=== PATIENT | female | born 1940 | race Caucasian/White ===

== ENCOUNTER 2022-08-08 15:19 | Outpatient (CLI) | payer MEDICARE, BC, SELFPAY ==
--- NOTE | 2022-08-08 15:30 | CRLHL7_ITS ---
For Patients: As a result of the Century Cures Act, medical imaging exams and procedure reports are released immediately into your electronic medical record. You may view this report before your referring provider. If you have questions, please contact your health care provider. Indication: Dizziness and imbalance Technique: Noncontrast sagittal T1, axial FLAIR, T2 turbo spine echo, high-resolution T2 weighted sequence and diffusion weighted images. Supplemental post contrast T1 weighted axial and coronal sequences are provided after administration of 15 mL gadolinium-based IV contrast. Comparison: No prior studies available for comparison at this institution. Findings: Moderate scattered foci of T2/FLAIR signal hyperintensity in the periventricular and subcortical white matter, nonspecific but likely due to chronic microangiopathic white matter changes. Mild generalized parenchymal volume loss. 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 The midline structures are centrally located with no evidence of shift. There are no suspicious intra or extra-axial fluid collections. No evidence of restricted diffusion to suggest acute ischemia. Expected flow voids in the cavernous carotids and basilar artery. No abnormal contrast enhancement involving the brain parenchyma, meninges, calvarium or skull base. Moderate mucosal thickening in the right maxillary sinus. Thinning of the ocular lenses likely due to prior cataract surgery changes.. Impression: 1. No evidence of acute intracranial abnormality. 2. Moderate cerebral and cerebellar parenchymal volume loss. Moderate supratentorial and infratentorial chronic microangiopathic white matter changes. 3. Unremarkable MRI of the internal auditory canals, cerebellopontine angles, and temporal bone structures. 4. No pathologic enhancement. Dictated by Leonides Emerson MD @ 08/09/2022 2:46:12 PM (Electronically Signed)
== END 2022-08-08 15:20 | disposition home or self-care (01) ==
PROVIDERS: PCP Physician Assistant Medical; Visit Provider Otolaryngology
DX: R42 Dizziness and giddiness (principal); R26.89 Other abnormalities of gait and mobility; Z13.29 Encounter for screening for other suspected endocrine disorder; Z11.9 Encounter for screening for infectious and parasitic diseases, unspecified; R70.0 Elevated erythrocyte sedimentation rate
CPT/HCPCS: 70553; 80048; 84443; 86039; 86431; 86618; A9575

== ENCOUNTER 2022-09-22 07:58 | Outpatient (CLI) | payer MEDICARE, BC, SELFPAY ==
--- OUTSIDE RECORDS SUMMARY | 2022-09-22 08:16 | XMS_ITS | Clinical Summary ---
:1940 Author Organization [employer] [facility] [place] [address] Care Team Providers Name Role Phone Neema Siddiqui Primary Care Provider [phone] Allergies Active Allergy Reactions Severity Noted Date Comments Esomeprazole Other - Describe In Low 06/22/2012 Indicate d it made Comment Field her feel funny - unable to give a true reaction d etail 03/10/14 Sulfa (Sulfonamide Tremors 06/22/2012 Antibiotics) Medications Medication Sig Dispensed Refills Start End Date Status Date multivitamin (MVI) Take 1 tablet 0 Active tablet by mouth once daily. CALCIUM Take 1,500 mg 0 Active CARBONATE/VITAMIN by mouth once D3 (CALCIUM + D daily. ORAL) medication order Right breast 1 Each 0 Active composerIndication prosthetic 9 s: Personal history of malignant neoplasm of breast tretinoin Apply a pea 45 g 3 Active (RETIN-A) 0.025 % sized amount to 1 0.025 % the face at creamIndications: bedtime. Use Photoaging of skin every 3rd night for 1 week, every other night for 1 week, then every night as tolerated. levothyroxine Take 1 Tablet 90 Tablet 3 Ac tive (SYNTHROID) 125 (125 mcg) by 1 mcg mouth before tabletIndications: breakfast. Hypothyroidism, unspecified type indomethacin Take 1 Capsule 30 Capsule 0 A ctive (INDOCIN) 50 mg (50 mg) by 2 capsuleIndications mouth 3 times : Gout, daily with unspecified cause, meals. unspecified chronicity, unspecified site citalopram Take 1 Tablet 90 Tablet 3 Activ e (CELEXA) 40 mg (40 mg) by 2 tabletIndications: mouth once History of major daily. depression fluticasone INHALE 1 DOSE 180 Each 3 Acti ve propion-salmeteroL BY MOUTH TWICE 2 (ADVAIR) 500-50 DAILY mcg/Dose diskus inhalerIndications : COPD with chronic bronchitis (HC) fluticasone INHALE 1 DOSE 60 Each 0 08/25/20 Disc ontinued propion-salmeteroL BY MOUTH TWICE 2 22 (Reorder (ADVAIR) 500-50 DAILY (E-c ancel not mcg/Dose diskus sent )) inhalerIndications : COPD with chronic bronchitis (HC) Active Problems Problem Noted Date COPD (chronic obstructive pulmonary disease) 4 ACP (advance care planning) 10/06/2013 Vitamin D deficiency 08/04/2013 Lung disease, interstitial 08/04/2013 Hyperlipidemia 07/22/2013 HYPOTHYROIDISM OSTEOPENIA Resolved Problems Problem Noted Date Resolved Date History of solitary pulmonary nodule -- follow-up CT 017 08/25/2022 05/30/2017 -- Nodule Resolved -- 5 mm, CT 11/2016 - [place] History of Helicobacter pylori infection 03/20/2016 08/25/2022 History of major depression 06/15/2015 08/25/2022 Degenerative arthritis of finger 04/21/2015 022 Dental abscess 04/21/2015 08/25/2022 Lumbar degenerative disc disease 07/21/2014 022 Lumbar facet arthropathy 07/21/2014 08/25/2022 Ganglion cyst of wrist 07/07/2014 08/25/2022 Fatty tumor 07/07/2014 08/25/2022 Left bundle branch block 07/07/2014 08/25/2022 Abnormal finding on EKG 05/19/2014 08/25/2022 Colon polyp 05/18/2014 05/20/2014 Autoimmune disease, 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) - 04/1308/25/2022 follows with Rheumatology in [place] H/O major depression 04/13/2014 08/25/2022 Arthritis of hand, degenerative 04/13/2014 10/28/20 22 [facility] arthritis, thumb, degenerative 04/13/201408/25 Dyspnea 08/07/2013 08/25/2022 Dyspnea 07/22/2013 04/13/2014 Rash 06/04/2013 04/13/2014 Renal cyst, left 06/24/2012 08/25/2022 Pelvic mass in female 06/05/2012 08/25/2022 MYOSITIS 05/31/2011 03/20/2016 CPK, ABNORMAL 04/12/2011 08/25/2022 Overview: She has a macro CPK complex BRONCHITIS, ACUTE 07/21/2010 04/13/2014 SKIN LESION 06/07/2010 08/25/2022 POSTMENOPAUSAL STATUS 08/25/2022 Osteoarthritis 08/25/2022 COLITIS 08/25/2022 Overview: Episodic nonspecific colitis ANXIETY 08/25/2022 Overview: Secondary to dx of breast cancer ADENOCARCINOMA, BREAST, HX OF 08/25/2022 Overview: T1 N0 M0 ER positive right breast cancer 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 Overview: T1 N0 M0 ER positive right breast cancer Obesity 08/25/2022 Encounters Date Type Specialty Care Team Description 08/25/2022 Office Visit Neema Siddiqui Medicare AN MICHAEL Carrera (subsequent) Vi sit (80 year medicare w [facility]- no pal rns ) 08/25/2022 Travel 08/22/2022 Ancillary Procedure 08/22/2022 Travel 08/20/2022 Travel 08/15/2022 Office Visit Neema Siddiqui Person MICHAEL Carey Investigation ( PUI) (Productive cou gh, SOB, fever x 10 days ) 08/15/2022 Travel from Last 3 Months Immunizations Name Administration Dates Next Due COVID-19 vaccine ([employer] 02/20/2022 30mcg/0.3mL) 12YO+ LISET-SUCROSE PF, MDV COVID-19 vaccine ([employer] 07/25/2021, 01/04/2021, 30mcg/0.3mL) PF, MDV Influenza Virus, Unspecified 08/21/2017, 08/23/2016, 016, 08/18/2015, 07/29/2014, 07/28/2014, 08/04/2013, 08/12/2012, 07/18/2011, 07/18/2011, 08/19/2007 Influenza, High-dose Inactivated 09/02/2019, 08/27/2018, , 08/23/2016 Influenza, High-dose Quadrivalent 07/17/2022, 09/16/2021, Inactivated Influenza, IIV3 (Age 6-35 mos) 08/17/2015, 07/23/2009 Influenza, IIV3 (Age >=3 years) 07/29/2014, 08/04/2013, 07/29, 07/18/2011, 08/19/2007 Influenza, IIV4 08/18/2015 Pneumococcal Poly,23-Valent 04/25/2018, 03/14/2004 (Pneumovax) Pneumococcal conj 13-Valent (Prevnar 05/02/2017 13) Td (Age >=7 Years) 06/21/2010, 03/14/2004 Tdap 06/05/2012 Tdap, Unspecified 03/14/2004 Zoster (Zostavax-ZVL, live) 06/21/2010, 07/01/2009, 07/07/20 08 Family History Medical History Relation Name Comments Cancer-prostate Brother 2 Heart Disease Brother 3 pacemaker Cancer Brother 4 cancer of the la rynx. Heart Disease Brother 5 Amyloidosis of t he heart, needs a heart transplant . Cancer Father skin cancer Genitourinary Disease Father at ag e 84 of kidney failure Heart Disease Father CAD Other Father had dementia Osteoporosis Mother Thyroid Disease Mother Hyperthyroidism Other Paternal Grandmother Dementia Thyroid Disease Sister 2 Hyperthyroidism Cancer-ovarian Sister 3 Cancer-breast No Family History Diabetes No Family History Relation Name Status Comments Brother 1 Brother 2 Brother 3 Brother 4 Brother 5 Daughter Alive Father at age 84 o f kidney failure Mother (Age 93) with natu ral causes, osteoporosis Paternal Grandmother Sister 1 Alive Sister 2 Sister 3 Social History Tobacco Use Types Packs/Day Years Used Date Former Smoker Cigarettes 0.5 Quit: 01/01/20 06 Smokeless Tobacco: Never Used Tobacco Cessation: Counseling Given: Yes Comments: smoked ages 22 until age 67 Alcohol Use Standard Drinks/Week Comments Yes 0 (1 standard drink = 0.6 oz pure alcoho l) occasional Alcohol Habits Answer Date Recorded How often do you have a drink containing alcohol? Not asked How many drinks containing alcohol do you have on a typical Not asked day when you are drinking? How often do you have six or more drinks on one occasion? No t asked Comment: occasional 04/19/2022 Sex Assigned at Date Recorded Not on file COVID-19 Exposure Response Date Recorded In the last 10 days, have you been in contact with No / Unsu re 08/25/2022 1:03 PM CDT someone who was confirmed or suspected to have Coronavirus/COVID-19? Obstetrics History Last Filed Vital Signs Vital Sign Reading Time Taken Comments Blood Pressure 104/64 08/25/2022 1:13 PM CDT Pulse 62 08/25/2022 1:13 PM CDT Temperature 36.9 ??C (98.5 ??F) 08/15/2022 10:45 AM CDT Respiratory Rate 20 01/11/2022 9:41 AM CDT Oxygen Saturation 96% 08/25/2022 1:13 PM CDT Inhaled Oxygen Concentration - - Weight 73.7 kg (162 lb 6.4 oz) 08/25/2022 1:13 PM CDT Height 165.6 cm (5' 5.2) 08/25/2022 1:13 PM CDT Body Mass Index 26.86 08/25/2022 1:13 PM CDT Plan of Treatment Health Maintenance Due Date Last Done Comments Zoster (shingles) series for age 1008/16/2010 06/21/2010, 12/2008, 50+ (2 of 3) 07/07/2008 Tetanus booster 06/05/2022 06/05/2012, 06/21/2010, 03/14/2004, Additional history exists BMI (ht and wt on same day) for 08/25/2023 08/25/2022, 11/29, age 18+ 11/16/2021, Additional history exists Depression screening for age 12+ 08/25/2023 08/25/2022, , 08/09/2020, Additional history exists Medicare Wellness for age 65+ 08/25/2023 08/25/2022, 2020, 08/09/2020, Additional history exists Tdap Completed 06/05/2012, 03/14/2004 Pneumococcal series for age 65+ Completed 04/25/2018, 02/2017, 03/14/2004 DEXA/DXA scan for age 65+ Completed 07/14/2020, 06/24/2018 , 08/06/2014, Additional history exists COVID-19 vaccine series Completed 07/17/2022, 02/20/2022, 07/25/2021, Additional history exists Influenza for age 65+ Completed 07/17/2022, 09/16/2021, 07/16/2020, Additional history exists Procedures Procedure Name Priority Date/Time Associated Diagnosis Comme nts BASIC METABOLIC Routine 08/25/2022 1:45 PM Screening for Resul ts for this PANEL CDT diabetes mellitus procedure are in the results section. LIPID PANEL W Routine 08/25/2022 1:45 PM Screening Results for this REFLEX MEASURED LDL CDT cholesterol level pro cedure are in the results section. TSH Routine 08/25/2022 1:45 PM Hypothyroidism, Result s for this CDT unspecified type procedure a re in the results section. XR MAMMO JOSSELYN BILAT Routine 08/22/2022 11:33 AM Routine adult health Results for this SCREEN CDT maintenance procedure are i n the results section. from Last 3 Months Results (ABNORMAL) LIPID PANEL W REFLEX MEASURED LDL (08/25/2022 1:45 PM CDT) [facility] Method Time Signature CHOLESTEROL,TOTAL 204 (H) 100 - 199 08/27/2022 [facility] mg/dL 3:58 AM CDT LABORATORY-[facility] TRAL LABORATORY TRIGLYCERIDES 224 (H) <150 08/27/2022 [facility] mg/dL 3:58 AM CDT LABORATORY-[facility] TRAL LABORATORY HDL CHOLESTEROL 55 >40 mg/dL 08/27/2022 [facility] 3:58 AM CDT LABORATORY-[facility] TRAL LABORATORY NON-HDL 149 (H) <145 08/27/2022 [facility] CHOLESTEROL mg/dl 3:58 AM CDT LABORATORY-[facility] TRAL LABORATORY CHOL/HDL RATIO 3.71 <4.50 08/27/2022 [facility] 3:58 AM CDT LABORATORY-[facility] TRAL LABORATORY LDL CHOLESTEROL 104 <=130 08/27/2022 [facility] mg/dL 3:58 AM CDT LABORATORY-[facility] TRAL LABORATORY VLDL CHOLESTEROL 45 (H) <=30 08/27/2022 [facility] mg/dL 3:58 AM CDT LABORATORY-[facility] TRAL LABORATORY PROVIDER ORDERED RANDOM 08/27/2022 [facility] STATUS 3:58 AM CDT LABORATORY-[facility] TRAL LABORATORY Specimen Anatomical Collection Method / Collection Time Recei magali Time (Source) Location / Volume Laterality Blood BLOOD SPECIMEN / Venipuncture / 08/25/2022 1:45 2021 1:50 Unknown Unknown PM CDT PM CDT Neema RODRIGUEZ CHEMISTRY Performing Organization Address [facility] e Number [facility] [address] [place] [address] LABORATORY-CENTRAL 2000 LABORATORY TSH (08/25/2022 1:45 PM CDT) athologist Signature TSH 0.44 0.35 - 4.94 08/27/2022 [facility] uIU/mL 4:20 AM CDT LABORATORY-CENTR AL LABORATORY Specimen Anatomical Collection Method / Collection Time Recei magali Time (Source) Location / Volume Laterality Blood BLOOD SPECIMEN / Venipuncture / 08/25/2022 1:45 2021 1:50 Unknown Unknown PM CDT PM CDT Narrative [facility] LABORATORY-CENTRAL LABORAT ORY - 08/27/2022 4:20 AM CDT In Adults, TSH values between 5.00 and 10.00 uIU/ml do not necessarily indicate the presence of Hyp othyroidism. Correlation with clinical findings such as presence of goiter and/or Thyroperoxidase (TPO) Antibody ma y be helpful. For more information please refer to ADRIAN 20 04; 291: [id number]. Neema RODRIGUEZ CHEMISTRY Performing Organization Address [facility] e Number [facility] [address] [place] [address] LABORATORY-CENTRAL 2000 LABORATORY (ABNORMAL) BASIC METABOLIC PANEL (08/25/2022 1:45 PM CDT) athologist Signature SODIUM 139 135 - 145 08/27/2022 [facility] mmol/L 3:56 AM CDT LABORATORY-[facility] TRAL LABORATORY POTASSIUM 4.7 3.5 - 5.0 08/27/2022 [facility] mmol/L 3:56 AM CDT LABORATORY-[facility] TRAL LABORATORY CHLORIDE 105 98 - 110 08/27/2022 [facility] mmol/L 3:56 AM CDT LABORATORY-[facility] TRAL LABORATORY CO2,TOTAL 26 21 - 31 08/27/2022 [facility] mmol/L 3:56 AM CDT LABORATORY-[facility] TRAL LABORATORY ANION GAP 8 5 - 18 08/27/2022 [facility] 3:56 AM CDT LABORATORY-[facility] TRAL LABORATORY GLUCOSE 91 65 - 100 08/27/2022 [facility] mg/dL 3:56 AM CDT LABORATORY-[facility] TRAL LABORATORY CALCIUM 9.3 8.5 - 10.5 08/27/2022 [facility] mg/dL 3:56 AM CDT LABORATORY-[facility] TRAL LABORATORY BUN 17 8 - 25 08/27/2022 [facility] mg/dL 3:56 AM CDT LABORATORY-[facility] TRAL LABORATORY CREATININE 0.82 0.57 - 08/27/2022 [facility] 1.11 mg/dL 3:56 AM CDT LABORATORY-[facility] TRAL LABORATORY BUN/CREAT RATIO 21 (H) 10 - 20 08/27/2022 [facility] 3:56 AM CDT LABORATORY-[facility] TRAL LABORATORY eGFR 72 (L) >90 08/27/2022 [facility] mL/min/1.7 3:56 AM CDT LABORATORY-NASIM 3m2 TRAL LABORATORY Comment: As of 2022, eGFR is calcu lated by the CKD-EPI creatinine equation without race adjustment. eGFR can be inf luenced by muscle mass, exercise, and diet. The reported eGFR is an estimation only and is only applicable if the renal function is stable. Specimen Anatomical Collection Method / Collection Time Recei magali Time (Source) Location / Volume Laterality Blood BLOOD SPECIMEN / Venipuncture / 08/25/2022 1:45 2021 1:50 Unknown Unknown PM CDT PM CDT Neema RODRIGUEZ CHEMISTRY Performing Organization Address City/State/ZIP Code Phon e Number [facility] [address] [place] [address] LABORATORY-CENTRAL 2000 LABORATORY XR MAMMO JOSSELYN BILAT SCREEN (08/22/2022 11:33 AM CDT) Anatomical Region Laterality Modality BREASTS, Breast Left, Breast Right Bilateral Mammo graphy Specimen (Source) Anatomical Location Collection Method / Collectio n Time Received Time / Laterality Volume Impressions 08/22/2022 1:55 PM CDT ??There is no radiographic evidence for malignancy. ??Recommend annual mammograms. MAMMOGRAM ASSESSMENT: ??ACR 2 Benign PATIENTS: You will also receive a letter with your examination results in an easy to read format. ??If you have qu estions about your results, please contact your referring provider. Narrative 08/22/2022 1:55 PM CDT For Patients: As a result of the Century Cures Act, medical imaging exams and procedure reports are released immediately into your electronic medical record. You may view this report before your referring provider. If you have questions, please contact [facility] provider. XR MAMMO JOSSELYN BILAT SCREEN [[id number]] CLINICAL HISTORY: ??This is an asymptoma tic 82 y.o. patient. INDICATION FOR EXAM: Mammogram Screening . TECHNIQUE: CC & MLO views were obtained. ??This study was evaluated with the assistance of Computer-Aided Detecti on. Breast Tomosynthesis was used in interpretation. COMPARISON FILMS: Yes 08/05/21 [facility] 07/14/20 [facility] FINDINGS: ??The breasts have scattered a reas of fibroglandular density. ??No suspicious masses or microcalcifications . ??Post treatment changes within right breast. Neema RODRIGUEZ MAMMO from Last 3 Months Insurance Payer Benefit Plan / Subscriber ID Effective Dates Phone Addre ss Type Group MEDICARE MEDICARE [id number] 2007-Presen [address] PROVIDER BASED PROVIDER BASED t [place] [phone] MEDICARE PART B MEDICARE PART B [id number] 2007-Presevelio ATTN: CLAIMS - HB USE ONLY HB ONLY t [address] [place] [phone] BLUE CROSS BLUE CROSS [id number] 2016-[place] [address] [address] [address] [place], [place] HB ONLY [id number] BLUE CROSS MR MR BC [place] [id number] 2016-Presen [address] [place] [address] BLUE CROSS MR CASTRO CROSS [id number] 2016-Presen [address] [address] [address] [place], [place] PB ONLY [id number] Advance Directives Documents on File Type Date 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
--- NOTE | 2022-09-22 09:15 | CRLHL7_ITS ---
For Patients: As a result of the Century Cures Act, medical imaging exams and procedure reports are released immediately into your electronic medical record. You may view this report before your referring provider. If you have questions, please contact your health care provider. INDICATION: Unsteady gait. TECHNIQUE: 3D time-of flight and gadolinium bolus magnetic resonance angiography of the neck with 3D MIP reconstructions provided. All measurements are based on NASCET criteria. 20 cc of Dotarem administered. COMPARISON : None. FINDINGS: There is a 3 vessel configuration of the aortic arch. The brachiocephalic artery is patent. The proximal subclavian arteries are patent. The common carotid arteries are patent. The internal carotid arteries are patent. Poor visualization of the left proximal cervical vertebral artery, which could be secondary to artifact or true stenosis. The left cervical vertebral artery mid to distally is patent. Right cervical vertebral artery is patent throughout its course. No abnormal dilatation of the major cervical arteries. IMPRESSION: 1. No flow-limiting stenosis involving the cervical carotid arteries. 2. Poor visualization of the left proximal cervical vertebral artery, which could be secondary to artifact or true stenosis. Left cervical vertebral artery mid to distally is patent. Right cervical vertebral artery is patent throughout its course. Dictated by Kenny Espinoza MD @ 09/22/2022 10:46:01 AM (Electronically Signed)
--- NOTE | 2022-09-22 10:15 | CRLHL7_ITS ---
For Patients: As a result of the Century Cures Act, medical imaging exams and procedure reports are released immediately into your electronic medical record. You may view this report before your referring provider. If you have questions, please contact your health care provider. INDICATION: Unsteady gait. TECHNIQUE: 3D gias-pn-zithuj magnetic resonance angiography of the head with 3D MIP reconstructions provided. Diffusion imaging was also obtained. COMPARISON: None. FINDINGS: No proximal large vessel occlusion. The anterior cerebral arteries are patent. The middle cerebral arteries are patent. The posterior cerebral arteries are patent. The intradural vertebral arteries and basilar artery are patent. The intracranial internal carotid arteries are patent. No aneurysm or high flow vascular malformation. No evidence of acute ischemia on the diffusion imaging. IMPRESSION: IMPRESSION 1. Normal appearance of the intracranial arterial circulation, with no proximal large vessel occlusion, flow limiting stenosis or other vascular abnormality. Dictated by Kenny Espinoza MD @ 09/22/2022 10:33:52 AM (Electronically Signed)
== END 2022-09-22 07:59 | disposition home or self-care (01) ==
LOC: RAD 07:59
PROVIDERS: PCP Physician Assistant Medical; Visit Provider Psychiatry & Neurology Neurology
DX: R26.9 Unspecified abnormalities of gait and mobility (principal); I63.9 Cerebral infarction, unspecified; H81.4 Vertigo of central origin
CPT/HCPCS: 70544; 70549; 93306; A9575

== ENCOUNTER 2023-05-07 07:51 | Outpatient (CLI) | payer MEDICARE, BC, SELFPAY ==
--- NOTE | 2023-05-07 08:15 | CRLHL7_ITS ---
For Patients: As a result of the Century Cures Act, medical imaging exams and procedure reports are released immediately into your electronic medical record. You may view this report before your referring provider. If you have questions, please contact your health care provider. INDICATION: Left elbow palpable abnormality. TECHNIQUE: Multiplanar, multisequence MR imaging of the elbow without intravenous contrast per standard elbow protocol. COMPARISON: None available. FINDINGS: OSSEOUS: No acute fracture, osseous contusion, or marrow replacement. JOINT: Effusion: Trace joint fluid. Loose Bodies: None identified. Ulnohumeral cartilage: No high-grade chondral loss. Radiocapitellar cartilage: No high-grade chondral loss. LIGAMENTS: Ulnar collateral ligamentous complex: Intact. Radial collateral ligamentous complex: Intact. TENDONS: Triceps: Intact. Biceps: Marked substance loss, indistinctness, and edema involving the distal insertional aspects of the biceps tendon. Surrounding the tendon is a fluid collection measuring approximately 2.1 x 1.7 x 3.6 cm at the level of the antecubital fossa (series 5, image 22; series 9, image 14), corresponding the palpable area of concern. Brachialis: Intact. Supinator: Intact. Common extensor tendon: Intact. Common flexor tendon: Intact. SOFT TISSUES: Musculature: No atrophy, edema, or fatty infiltration. Cubital tunnel: Unremarkable. Mass: No solid mass identified. Collection: Fluid collection surrounding the distal biceps tendon, as above. Other: Negative. IMPRESSION: Distal biceps tendon high-grade, near-complete insertional tear. Associated bicipitoradial bursitis corresponding with the antecubital fossa palpable abnormality. Dictated by Will Monroy MD @ 05/07/2023 10:57:09 AM (Electronically Signed)
== END 2023-05-07 07:52 | disposition home or self-care (01) ==
LOC: MRI 07:52
PROVIDERS: PCP Physician Assistant Medical; Visit Provider Family Medicine
DX: R22.32 Localized swelling, mass and lump, left upper limb (principal); M75.52 Bursitis of left shoulder
CPT/HCPCS: 73221

== ENCOUNTER 2023-09-14 09:57 | Outpatient (CLI) | payer MEDICARE, BC, SELFPAY ==
--- NOTE | 2023-09-14 10:15 | CRLHL7_ITS ---
For Patients: As a result of the Century Cures Act, medical imaging exams and procedure reports are released immediately into your electronic medical record. You may view this report before your referring provider. If you have questions, please contact your health care provider. Indication: Osteoarthritis Procedure : Informed consent was obtained. The site was marked. Time-out was performed. The skin of the right hip was cleansed with ChloraPrep. A sterile drape was placed. 8 cc of 1 percent lidocaine was administered for superficial anesthesia. Subsequently a 22 gauge spinal needle was introduced into the right hip joint under intermittent fluoroscopic guidance. Injection of 7 cc 1 percent lidocaine and 2 cc of 40 milligram/cc Depo-Medrol then performed. The needle was removed and hemostasis achieved with direct pressure. A dressing was placed. The patient tolerated the procedure well without immediate complication. Total fluoroscopy time 7 seconds. Impression: Successful fluoroscopically guided right hip injection with 80 milligrams of Depo-Medrol. Dictated by Leonides Squires MD @ 09/14/2023 12:15:01 PM (Electronically Signed)
== END 2023-09-14 09:58 | disposition home or self-care (01) ==
LOC: RAD 09:57
PROVIDERS: PCP Physician Assistant Medical; Visit Provider Orthopaedic Surgery Sports Medicine
DX: M16.11 Unilateral primary osteoarthritis, right hip (principal)
CPT/HCPCS: 20610; 77002; J1030

== ENCOUNTER 2023-10-24 09:11 | Outpatient (CLI) | payer MEDICARE, BC, SELFPAY ==
--- NOTE | 2023-10-24 09:15 | MR_ITS ---
[address] [address] Phone:?[phone] Fax:?[phone] Referring Physician Information: Elver Diego M.D. [address] [facility] [address] Phone:?[phone] Fax:?[phone] Patient:Jovi Batista D.O.B:?1940 Sex:?Female Phone:?[phone] [facility] MRN:?[id number] Exam Date:?10/24/2023 EXAM: MRI of the RIGHT HIP, without contrast CLINICAL: Reported history of right hip osteoarthritis. COMPARISONS: X-rays dated 08/27/2023. TECHNICAL: Multiplanar multisequence MRI of the right hip was obtained. Coronal large [id number] sequences of the pelvis/bilateral hips were also obtained. SEDATION: None. CONTRAST: None. FINDINGS: Hip joint: Physiologic volume of joint fluid. No convincing loose bodies. No demonstrable high-grade or full-thickness chondral loss. Labrum: There is fraying and tearing of the anterosuperior labrum as seen on axial oblique series 6 image 13-17. No perilabral cyst formation identified. Proximal femur: No marrow edema, fracture or osteonecrosis. No concerning osseous lesion identified. Acetabulum: There is mild degenerative peripheral spurring involving the acetabulum. Minimal subchondral reactive marrow edema involving the peripheral superior acetabulum. No significant subchondral cystic change and no evidence of fracture. Ligamentum teres: Intact and unremarkable. Pelvis osseous structures: No suspicious marrow signal alteration or fracture line. Mild to moderate changes of arthrosis are seen to involve the inferior sacroiliac joints bilaterally. Mild to moderate changes of arthrosis are seen to involve the pubic symphysis. No evidence of osteitis pubis. Myotendinous structures: Gluteus abductors: Moderate tendinosis and mild partial tearing of the distal right gluteus minimus tendon as seen on axial series 7 images 18-21. Distal gluteus medius tendon appears unremarkable. Adductors: No demonstrable tendinopathy or strain/tear. Hamstrings: There is mild tendinosis and mild partial tearing of the proximal right hamstring tendons at the ischial tuberosity attachment. Flexors: Intact iliopsoas and rectus femoris, without strain/tear. External rotators: Intact. The ischiofemoral and quadratus femoris spaces are within normal limits. Gluteal aponeurotic fascia and IT band: Unremarkable. Bursae: There is minimal edema in the region of the right trochanteric bursa. No iliopsoas bursitis. Intrapelvic structures: Although evaluation of the intrapelvic structures is limited on this exam, no convincing pelvic mass is identified as visualized. Multilevel degenerative changes are seen to involve the imaged lower lumbar spine, please see dedicated lumbar spine MRI report for further information regarding the lumbar spine. IMPRESSION: 1. Tearing of the anterosuperior labrum with minimal osseous changes of arthrosis involving the right hip joint. 2. Moderate tendinosis and mild partial tearing of the distal right gluteus minimus tendon. 3. Mild tendinosis/partial tearing of the proximal right hamstring tendons at the ischial tuberosity attachment. 4. Mild to moderate changes of arthrosis involving the inferior sacroiliac joints and pubic symphysis. 5. No evidence of fracture or avascular necrosis. JCZ Electronically signed on 10/24/2023 1:03:00 PM by Krishna Mendoza D.O.
--- NOTE | 2023-10-24 10:15 | MR_ITS ---
[address] [address] Phone:?[phone] Fax:?[phone] Referring Physician Information: Elver Diego M.D. [address] [facility] [address] Phone:?[phone] Fax:?[phone] Patient:Jovi Batista D.O.B:?1940 Sex:?Female Phone:?[phone] [facility] MRN:?[id number] Exam Date:?10/24/2023 EXAM: MR LUMBAR SPINE WITHOUT CONTRAST CLINICAL INFORMATION: Intravertebral disc degeneration. No clinical symptoms communicated. CORRELATIVE IMAGES: No prior imaging submitted. TECHNICAL INFORMATION: 1.5T MRI. T1, T2 and STIR sagittal through the lumbar spine with T1 and T2 axial at selected levels. CONTRAST ADMINISTERED: None.?CONTRAST DISCARDED: None. SEDATION: None. INTERPRETATION:?Segmentation and Alignment:?No segmentation anomaly evident. Lordotic alignment of lumbar spine. Disc/Operative changes:?Moderate to marked multilevel thoracolumbar disc desiccation with Schmorl's nodes. At L5-S1 Central canal is patent. Mild chronic left foraminal to far lateral stenosis related to marginal osteophyte encroaching L5 nerve root. Mild left facet arthrosis. L4-5, mild posterior bulging and moderate right facet degeneration with lateral recess encroachment or mild impingement of L5 nerve roots. Moderate right foraminal to far lateral chronic osteophytic stenosis with L4 impingement. L3-4, trace anterolisthesis with mild annular bulging, advanced right and moderate left facet degeneration with moderate central stenosis encroaching nerve roots, particularly left L4. No foraminal neural compression. L2-3, mild spondylotic ridging, facet hypertrophy and central stenosis. Facet osteophyte impinges right L2 nerve root within the foramen. L1-2 and T11-12 annular morphology are normal. Small T12-L1 central bulge and messina without stenosis. Sacrum and Sacroiliac joints:?Limited visualized sacrum and sacroiliac joints demonstrate no significant pathology. Conus/distal cord:?No gross lower spinal cord signal pathology evident. No intradural mass or arachnoidal adhesions. Osseous and paraspinous structures:?Bone marrow signal is unremarkable. Paraspinal soft tissues are unremarkable. CONCLUSION: 1. Multilevel disc degeneration, particularly L2-3 through L5-S1, with mild lateral recess or central stenosis L2-3 through L4-5 without christiano neural compression. 2. Mild to moderate chronic foraminal stenosis with nerve root impingement, notably right L2 and L4. RSP Electronically signed on 10/25/2023 5:07:00 PM by Jordan Alejo M.D.
== END 2023-10-24 09:12 | disposition home or self-care (01) ==
LOC: MRI 09:12
PROVIDERS: PCP Physician Assistant Medical; Visit Provider Orthopaedic Surgery Sports Medicine
DX: M16.11 Unilateral primary osteoarthritis, right hip (principal); S73.101A Unspecified sprain of right hip, initial encounter; M51.36 Other intervertebral disc degeneration, lumbar region; M51.37 Other intervertebral disc degeneration, lumbosacral region; M48.061 Spinal stenosis, lumbar region without neurogenic claudication
CPT/HCPCS: 72148; 73721

== ENCOUNTER 2025-01-02 09:54 | Outpatient (CLI) | payer MEDICARE, BC, SELFPAY | END 2025-01-02 09:55 | disposition home or self-care (01) | LOC: NFLDREF 09:54 | PROVIDERS: PCP Physician Assistant Medical; Visit Provider Nurse Practitioner | DX: R31.21 Asymptomatic microscopic hematuria (principal) | CPT/HCPCS: 87086 ==

== ENCOUNTER 2025-07-04 11:38 | Emergency (ER) | payer MEDICARE, BC, SELFPAY ==
[2025-07-04] VITALS (14 sets, daily range): BP systolic 134–153; BP diastolic 63–83; PULSE 60–82; RESP 0–62; TEMP 36.8; O2SAT 94–97; BMI 29.1
--- OUTSIDE RECORDS SUMMARY | 2025-07-04 11:40 | XMS_ITS | Clinical Summary ---
Author Organization [employer] [facility] Address [address] [place] [address] Care Team Providers Care Fire Equipment Inspector Name Role Phone Neema Siddiqui Primary Care Provider Allergies Active Allergy Reactions Criticality Noted Date Comments Esomeprazole Other - Describe In Comment Field Low 06/22/2012 Indicated it made her feel funny- unable to give a true reaction detail 03/10/14 Sulfa (Sulfonamide Antibiotics) Tremors 06/22/2012 Medications * This document contains information received from the source organization and may not represent a complete record from that organization. multivitamin (MVI) tablet Take 1 tablet by mouth once daily. Active CALCIUM CARBONATE/VITAMI N D3 (CALCIUM + D ORAL) Take 1,500 mg by mouth once daily. 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 1 Each 4 Active montelukast (SINGULAIR) 10 mg tabletIndication s:Allergic rhinitis due to pollen, unspecified seasonality Take 1 Tablet (10 mg) by mouth at bedtime. 90 Tablet 1 4 Active fexofenadine (JESUS) 180 mg tabletIndication s:Allergic rhinitis due to pollen, unspecified seasonality Take 180 mg by mouth once daily. Do not crush or chew. 90 Tablet 3 5 Active fluticasone propion-salmeter oL 500-50 mcg/Dose diskus inhalerIndicatio ns:COPD with chronic bronchitis (HC) INHALE 1 DOSE BY MOUTH TWICE DAILY 180 Each 1 5 Active levothyroxine 125 mcg tabletIndication s:Hypothyroidism , unspecified type Take 1 Tablet (125 mcg) by mouth before breakfast. Take 1 tablet by mouth 6 days a week. 90 Tablet 3 5 Active citalopram 20 mg tabletIndication s:Depression, major, single episode, moderate (HC) Take 1 Tablet (20 mg) by mouth once daily in the morning. 90 Tablet 1 5 Active albuterol HFA 90 mcg/actuation inhalerIndicatio ns:COPD with chronic bronchitis (HC) Inhale 1-2 Puffs by mouth every 4 hours if needed for Shortness Of Breath or Wheezing. 3 Each 3 5 Active indomethacin 50 mg capsuleIndicatio ns:Gout, unspecified cause, unspecified chronicity, unspecified site Take 1 Capsule (50 mg) by mouth three times daily with meals. 30 Capsule 5 Active Active Problems Problem Noted Date Diagnosed Date Depression, major, single episode, moderate 04/29 Bronchitis 05/19/2024 Osteopenia 04/25/2018 COPD (chronic obstructive pulmonary disease) ACP (advance care planning) 10/06/2013 Vitamin D deficiency 08/04/2013 Lung disease, interstitial 08/04/2013 Hyperlipidemia 07/22/2013 HYPOTHYROIDISM OSTEOPENIA Resolved Problems Problem Noted Date Diagnosed Date Resolved Date History of solitary pulmonar y nodule -- follow-up CT 05/30/2017 -- Nodule Resolved -- 5 mm, CT 11/2016 - [place] 05/02/2017 08/25/2022 History of Helicobacter pylori infection 03/20/2016 08/25/2022 History of major depression 06/15/2015 08/25/2022 Degenerative arthritis of finger 04/21/2015 08/25/2022 Dental abscess 04/21/2015 08/25/2022 Lumbar degenerative disc disease 07/21/2014 08/25/2022 Lumbar facet arthropathy 07/21/2014 Ganglion cyst of wrist 07/07/201408/25 Fatty tumor 07/07/2014 08/25/2022 Left bundle branch block 07/07/2014 Abnormal finding on EKG 05/19/201407/30 Colon polyp 05/18/2014 05/20/2014 Autoimmune disease, 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) - follows with Rheumatology in [place] 04/13/2014 08/25/2022 H/O major depression 04/13/2014 022 Arthritis of hand, degenerative 04/13/2014 08/25/2022 CMC arthritis, thumb, degenerative 04/13/2014 08/25/2022 Dyspnea 08/07/2013 08/25/2022 Dyspnea 07/22/2013 04/13/2014 Renal cyst, left 06/24/2012 08/25/2022 Pelvic mass in female 06/05/20122021 MYOSITIS 05/31/2011 03/20/2016 CPK, ABNORMAL 04/12/2011 08/25/2022 Overview (06/17/2012): She has a macro CPK complex SKIN LESION 06/07/2010 08/25/2022 POSTMENOPAUSAL STATUS 2021 Osteoarthritis 08/25/2022 COLITIS 08/25/2022 Overview (04/13/2014): Episodic nonspecific colitis ANXIETY 08/25/2022 Overview (06/17/2012): Secondary to dx of breast cancer ADENOCARCINOMA, BREAST, HX OF 08/25/2022 Overview (06/17/2012): T1 N0 M0 ER positive right breast cancer 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 RECEPTOR 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 08/25/2022 Overview (06/17/2012): T1 N0 M0 ER positive right breast cancer Obesity 08/25/2022 Encounters Date Type Department Care Team Description 04/20/2025 Telephone [facility] [address] [place] [address] Phoenix Fields DO Referral (PHYSICAL THERAPY) 04/15/2025 Refill [facility] [address] [facility] [place] [address] Neema Siddiqui PA Refill Request from Last 3 Months Immunizations Immunization Administration Dates Next Due COVID-19 vaccine (Honk-Bio NTech 30mcg/0.3mL) 12YO+ LISET-SUCROSE PF, MDV 02/20/2022 COVID-19 vaccine (Honk-Bio NTech 30mcg/0.3mL) PF, MDV 07/25/2021,01/04/2021,12/14/2020 Influenza Virus, Unspecified 08/21/2017, 08/23/2016,08/22/2016,2014,07/29/2014,07/28/2014,08/04/2013,1 ,07/18/2011,07/18/2011, 007 Influenza, High-dose Inactivated 024,09/02/2019,08/27/2018,2016,08/23/2016 Influenza, High-dose Quadriv alent Inactivated 09/11/2023,07/17/2022,09/16/2021,2019 Influenza, IIV3 (Age 6-35 mos) 08/17/2015,2008 Influenza, IIV3 (Age >=3 years) 07/29/20 14,08/04/2013,08/12/2012,2010,08/19/2007 Influenza, IIV4 08/18/2015 Pneumococcal Poly,23-Valent (Pneumovax) 04/25/2018,03/14/2004 Pneumococcal conj 13-Valent (Prevnar 13) 05/02/2017 Td (Age >=7 Years) 06/21/2010,03/14/2004 Tdap 06/05/2012 Tdap, Unspecified 03/14/2004 Zoster (Shingrix-RZV, recombinant) 06/20/2023, Zoster (Zostavax-ZVL, live) 06/21/2010, 9,07/07/2008 Family History Medical History Relation Name Comments Cancer-prostate Brother 2 Heart Disease Brother 3 pacemaker Cancer Brother 4 cancer of the l arynx. Heart Disease Brother 5 Amyloidosis of the heart, needs a heart transplant. Cancer Father skin cancer Genitourinary Disease Father a t age 84 of kidney failure Heart Disease Father CAD Other Father had dementia Osteoporosis Mother Thyroid Disease Mother Hyperthyroid ism Other Paternal Grandmother Dementi a Thyroid Disease Sister 2 Hyperthyroid ism Cancer-ovarian Sister 3 Cancer-breast No Family History Diabetes No Family History Relation Name Status Comments Brother 1 Brother 2 Brother 3 Brother 4 Brother 5 Daughter Alive Father at age 84 of kidney failure Mother (Age 93) with natural causes, osteoporosis Paternal Grandmother Sister 1 Alive Sister 2 Sister 3 Social History Tobacco Use Types Packs/Day Years Used Date Smoking Tobacco: Former Cigarettes Q uit: 10/29/2005 Smokeless Tobacco: Never Tobacco Cessation:Counseling Given: Yes Comments:smoked ages 22 until age 67 Alcohol Use Standard Drinks/Week Comments Yes 0 (1 standard drink = 0.6 oz pur e alcohol) occasional PHQ-2 Answer Date Recorded PHQ-2 TOTAL SCORE 0 08/29/2024 Social Connections Answer Date Recorded Do you often feel lonely or isolated from those around you? 0 11/09/2024 Alcohol Use Answer Date Recorded How often do you have a drink containing alcohol ? 2 01/11/2022 How many drinks containing a lcohol do you have on a typical day when you are drinking? 0 01/11/2022 How often do you have five or more drinks on one occasion? 0 01/11/2022 Financial Resource Strain Answer Date R ecorded Difficulty of Paying Living Expenses 3 11/09/2024 Difficulty of Paying Living Expenses Not on file 11/09/2024 Food Insecurity Answer Date Recorded Do you worry your food will run out before you are able to buy more? 1 11/09/2024 Transportation Needs Answer Date Record ed Does lack of transportation keep you from medica l appointments? 1 11/09/2024 Does lack of transportation keep you from work, meetings or getting things that you need? 1 11/09/2024 Housing Stability Answer Date Recorded What is your housing situation today? 1 11/09/2024 Utilities Answer Date Recorded Do you have trouble paying f or utilities (for example, heat, electricity, water, phone)? 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 Gender Identity Not on file Sexual Orientation Not on file Obstetrics History Last Filed Vital Signs Vital Sign Reading Time Taken Comments Blood Pressure 108/67 03/30/2025 9:04 AM CDT Pulse 72 03/30/2025 9:04 AM CDT Temperature 36.9 C (98.5 F) 08/15/2022 10:45 AM CDT Respiratory Rate 20 01/11/2022 9:41 AM CDT Oxygen Saturation 96% 03/30/2025 9:04 AM CDT Inhaled Oxygen Concentration - - Weight 83 kg (183 lb) 03/30/2025 9:04 AM CDT Height 162.6 cm (5' 4) 08/29/2024 11:35 AM CDT Body Mass Index 31.41 08/29/2024 11:35 AM CDT Plan of Treatment Upcoming Encounters Date Type Department Care Team (Late st Contact Info) Description 07/10/2025 2:05 PM CDT Office Visit [facility] [address] [place] [address] Phoenix Fields DO [address] [place] [address] Health Maintenance Due Date Last Done Comments RSV vaccine for adults or (1 - 1-dose 75+ series) 2017 Tetanus booster 06/05/2022 06/05/2012, 05/30, 03/14/2004, Additional history exists COVID-19 vaccine series ( season) 2025 07/28/2024, 07/30/2023, 07/17/2022, Additional history exists Influenza Vaccine (#1) 2025 , 09/02/2019, 08/27/2018, Additional history exists BMI (ht and wt on same day) for age 18+ 08/29/2025 08/29/2024, 05/19/2024, 10/23/2023, Additional history exists Depression screening for age 12+ 08/29/2025 08/29/2024, 08/04/2024, 08/27/2023, Additional history exists Medicare Wellness for age 65+ 08/30/2025 08/29/2024, 08/27/2023, 08/25/2022, Additional history exists Pneumococcal series for age 50+ Completed 04/25/2018, 05/02/2017, 03/14/2004 DEXA/DXA scan for age 65+ Completed 2019, 06/24/2018, 08/06/2014, Additional history exists Zoster (shingles) series for age 50+ Completed 06/20/2023, 02/27/2023, 06/21/2010, Additional history exists Hepatitis B series for 19+ Aged Out N o longer eligible based on patient's age to complete this topic Procedures Procedure Name Priority Date/Time Associated Diagnosis Comments XR DXA BONE DENSITY 2 SITES AXIAL Routine 07/14/2020 10:41 AM CDT Other specified menopausal and perimenopausal disorders Osteopenia, unspecified location from Last 3 Months or Most Recently Relevant to Health Maintenance Results * (ABNORMAL) XR DXA BONE DENSITY 2 SITES AXIAL (07/14/2020 10:41 AM CDT) Anatomical Region Laterality Modality Spine, HIPS, HIPL, HIPR Other Narrative 07/18/2020 1:40 PM CDT Please see scanned document for results of this study. Neema RODRIGUEZ DEXA Final R esult from Last 3 Months or Most Recently Relevant to Health Maintenance Insurance BLUE CROSS FALSE PASS BLUE MR PB ONLY MEDICARE PART B HB ONLY BLUE CROSS FALSE PASS BLUE HB ONLY MEDICARE PROVIDER BASED MR BC FALSE PASS Advance Directives Documents on File Type Date Recorded Patient Cell Inspector Expl anation Healthcare Directive 01/08/2021 021 Healthcare Directive 01/11/2001 12:00 AM e xpired 09-15-21 Care Teams Fire Equipment Inspector Relationship Specialty Start Date End Date Neema Siddiqui PA [address] [place], [place] [phone] PCP - General Physician Language Interpreter 07/24/18
--- OUTSIDE RECORDS SUMMARY | 2025-07-04 11:40 | XMS_ITS | Clinical Summary ---
Author Organization [facility] Address [address] [place] [address] Care Team Providers Care In Flight Crew Member Name Role Phone Nathan Szymanski MD Primary Care Provider [phone] Allergies Active Allergy Reactions Criticality Noted Date Comments Esomeprazole Other (See Comments) Low 06/22/2012 Indicated it made her feel funny- unable to give a true reaction detail 03/10/14 Sulfa Antibiotics 06/22/2012 Other reaction(s): Tremors Medications aspirin 81 MG tablet 1 tab every other day 2 Active Calcium Carb-Cholecalcife rol (CALCIUM CARBONATE-VITAMIN D3 PO) Take 1,500 mg by mouth daily Active diclofenac (VOLTAREN) 1 % GEL topical gel Apply 4 g, 4 times daily as needed for arthritis pain 7 Active Multiple Vitamin (MULTI-VITAMINS) TABS Take 1 tablet by mouth daily Active indomethacin (INDOCIN) 25 MG capsuleIndication s:Hyperuricemia Take 1 capsule (25 mg) by mouth 3 times daily (with meals) 42 capsule 1 8 Active budesonide-formot naomie (SYMBICORT) 80-4.5 MCG/ACT InhalerIndication s:Lung disease, interstitial (H) Inhale 2 puffs into the lungs 2 times daily Rinse mouth well after use to prevent Thrush. 1 Inhaler 11 8 Active citalopram (CELEXA) 40 MG tabletIndications :Anxiety state Take 1 tablet (40 mg) by mouth daily 90 tablet 3 8 Active levothyroxine (SYNTHROID/LEVOTH ROID) 112 MCG tabletIndications :Hypothyroidism, unspecified type TAKE 1 TABLET BY MOUTH DAILY with extra 1 tablet every 14 days (15 tablets every 14 days) 100 tablet 3 8 Active HYDROcodone-aceta minophen (NORCO) 5-325 MG per tablet Take 1 tablet by mouth every 6 hours as needed for severe pain 20 tablet 8 Active Active Problems Problem Noted Date Diagnosed Date Osteopenia, unspecified location 04/25/2018 Personal history of malignant neoplasm of breast 11/28/2017 Overview (11/28/2017): Overview: T1 N0 M0 ER positive right breast cancer Anxiety state 11/28/2017 Overview (11/28/2017): Overview: Secondary to dx of breast cancer Colitis 11/28/2017 Overview (11/28/2017): Overview: Episodic nonspecific colitis Estrogen receptor positive tumor status 11/28/19 18 Overview (11/28/2017): Overview: T1 N0 M0 ER positive right breast cancer Hypothyroidism 11/28/2017 Osteoarthrosis 11/28/2017 Obesity 11/28/2017 Disorder of bone and cartilage 11/28/2017 Symptomatic menopausal or female climacteric sta ashly 11/28/2017 History of solitary pulmonary nodule 05/02/2017 History of Helicobacter pylori infection 016 History of major depression 06/15/2015 Degenerative arthritis of finger 04/21/2015 Dental abscess 04/21/2015 Lumbar degenerative disc disease 07/21/2014 Lumbar facet arthropathy 07/21/2014 Lipoma 07/07/2014 Ganglion cyst of wrist 07/07/2014 Left bundle branch block 07/07/2014 Abnormal finding on EKG 05/19/2014 Arthritis of hand, degenerative 04/13/2014 Autoimmune disease 04/13/2014 CMC arthritis, thumb, degenerative 04/13/2014 COPD (chronic obstructive pulmonary disease) H/O major depression 04/13/2014 Dyspnea 08/07/2013 Lung disease, interstitial 08/04/2013 Vitamin D deficiency 08/04/2013 Mixed hyperlipidemia 07/22/2013 Renal cyst, left 06/24/2012 Pelvic mass in female 06/05/2012 Myopathy 08/29/2011 Abnormal levels of other serum enzymes 1 Overview (11/28/2017): Overview: She has a macro CPK complex Skin lesion 06/07/2010 Resolved Problems Problem Noted Date Diagnosed Date Resolved Date ACP (advance care planning) 10/06/2013 01/01/2019 Encounters Date Type Department Care Team Description 04/15/[address] [facility] [address] [place] [phone] Nathan Szymanski MD Refill Request from Last 3 Months Immunizations Immunization Administration Dates Next Due Flu, Unspecified 07/18/2011 Influenza (High Dose) Trival ent,PF (Fluzone) 08/21/2017,08/23/2016,08/22/2016 Influenza (IIV3) PF 07/29/2014, 4,08/04/2013,2011,07/18/2011,08/19/2007 Influenza (prior to 2023) 08/17/2015,07/23/2009 Influenza Vaccine >6 months,quad, PF 08/18/2015 Pneumo Conj 13-V (2010&after) 05/02/2017 Pneumococcal 23 valent 04/25/2018,03/14/2004 TDAP Vaccine (Boostrix) 06/05/2012 Td (Adult), Adsorbed 06/21/2010,03/14/2004 Tdap (Adult) Unspecified Formulation 03/14/2004 Zoster vaccine, live 06/21/2010,07/01/2009,07/07 Family History Medical History Relation Comments Prostate Cancer Brother 2 Cancer-prostate Heart Disease Brother 3 Heart Disease,alvarez pablo Cancer Brother 4 Cancer,cancer of the larynx. Heart Disease Brother 5 Heart Disease,Am yloidosis of the heart, needs a heart transplant. Cancer Father Cancer,skin canc er Genitourinary Problems Father Genitouri nary Disease, at age 84 of kidney failure Heart Disease Father Heart Disease,CA D Other - See Comments Father had dementi a Osteoporosis Mother Osteoporosis Thyroid Disease Mother Thyroid Disease, Hyperthyroidism Other - See Comments Paternal Grandmother Eris ia Ovarian Cancer Sister 2 Cancer-ovarian Thyroid Disease Sister 3 Thyroid Disease, Hyperthyroidism Breast Cancer No family hx of Cancer-breast Diabetes No family hx of Diabetes Relation Status Comments Brother 1 Alive Brother 2 Brother 3 Brother 4 Brother 5 Daughter Alive Father at age 84 o f kidney failure Mother (Age 93) with natu ral causes, osteoporosis Paternal Grandmother Sister 1 Alive Sister 2 Sister 3 Social History Tobacco Use Types Packs/Day Years Used Date Smoking Tobacco: Former Cigarettes Q uit: 10/29/2005 Smokeless Tobacco: Never Comments:Quit smoking: smoke d ages 22 until age 67 Alcohol Use Standard Drinks/Week Comments Yes 0 (1 standard drink = 0.6 oz pur e alcohol) Adolescent Education Answer Date Record ed Getting School Help Needed Not on file 07/20 Comments No Sex and Gender Information Value Date Recorded Sex Assigned at Not on file Legal Sex 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 Gender Identity Not on file Sexual Orientation Not on file Last Filed Vital Signs Vital Sign Reading Time Taken Comments Blood Pressure 153/109 05/06/2018 2:30 PM CDT Pulse 68 05/06/2018 11:20 AM CDT Temperature 37.1 C (98.7 F) 05/06/2018 11:20 AM CDT Respiratory Rate 20 05/06/2018 1:59 PM CDT Oxygen Saturation 71% 05/06/2018 2:30 PM CDT Inhaled Oxygen Concentration - - Weight 86.2 kg (190 lb) 05/06/2018 11:20 AM CDT Height 167.6 cm (5' 6) 05/06/2018 11:20 AM CDT Body Mass Index 30.67 05/06/2018 11:20 AM CDT Plan of Treatment Not on file Insurance MEDICARE [place] [id number] Advance Directives For more information, please contact: [phone] Documents on File Type Date Recorded Patient Pants Presser Expl anation Advance Directives and Living Will 12/06/2018 3:14 PM Health Care Directiv e 01/11/2001 Healthcare Agents on File Name Relationship Healthcare Agent [facility] p Communication Cailin Burroughs Daughter Health Care Agent Gavi Aranda Sister First Alternate Health Care Agent Care Teams In Flight Crew Member Relationship Specialty Start Date End Date Nathan Szymanski MD [address] [place] [address] PCP - General Internal Medicine 01/15/18
--- OUTSIDE RECORDS SUMMARY | 2025-07-04 11:40 | XMS_ITS | Patient Health Record ---
Author Organization [facility] Address [address] [place] [address] Care Team Providers Care Fashion Editor Name Role Phone Neema Mckenzie Primary Care Provider GAYE Miranda Unavailable [phone] Allergies Allergen (clinical drug ingredient) Drug/Non Drug Allergy documented on EMR Reaction Allergy Type Onset Date Status Substance with sulfonamide structure and antibacterial mechanism of action (substance) Sulfa Antibiotics Unknown Drug Allergy Active Reason For Referral No Information Medications Medication SIG (Take, Route, Fr equency, Duration) Notes Start Date End Date Status Citalopram Hydrobromide Active Levothyroxine Sodium Active Social History Tobacco Use: Social History Observation Description Date Details (start date - stop date) Former Smoker NA - NA Social History Alcohol Use: Social Info Question Answer Notes Recreational drugs Recreational Drug Use: No Alcohol Screen Did you have a drink containing alcohol in the past year? Yes How often did you have a drink containing alcohol in the past year? 2 to 4 times a month (2 points) How many drinks did you have on a typical day when you were drinking in the past year? 1 or 2 drinks (0 point) Points 2 Interpretation Negative Tobacco Use: Social Info Question Answer Notes Tobacco use/smoking Are you a former smoker Problems Problem Type SNOMED Code ICD Code Onset Dates Problem Status W/U Status Risk Notes Problem Sensorineural hearing loss, bilateral (000692598) Bilateral sensorineural hearing loss (H90.3) Active confirmed Problem Benign paroxysmal positional vertigo (545033786) Benign paroxysmal positional vertigo, unspecified laterality (H81.10) Active confirmed Plan Of Treatment No Information Insurance Providers Payer Name Payer Address Payer Phone Subscriber Number Group Number Insured Name Patient Relationship to Insured Coverage Start Date Coverage End Date [employer] [place] [employer]IC[place] [address] [address] [place], [place] [id number] TrevinjhonnyKatlyn gray Self - patient is the insured MEDICARE [address] [place] [address] [id number] Darnell Batistay Self - patient is the insured Medical (General) History Medical History History ICD Code thyroid disease covid 19 vaccine 06/2021 breast cancer Surgical History Surgery Date(Month/Year) hysterectomy lumpectomy
--- NOTE | 2025-07-04 12:16 | ED.GENADULT ---
HPI - General Adult General Date Seen: 07/04/25 Chief complaint: Dizziness/Vertigo Stated complaint: light-headed, balance problems Time Seen by Provider: 07/04/25 12:15 History of Present Illness HPI narrative: 85 yo F with history of COPD, interstitial lung disease, bronchitis arthritis, lumbar stenosis, hypothyroidism, hyperlipidemia, osteopenia, depression. 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 Most recent clinic visit was in March (for cough thyroid check. Also records indicate that she was scheduled to see a balance and dizziness specialist. 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 She says that she has had fairly extensive workups through her PCP, as dizziness and balance Clinic in the [facility] as well as a neurologist. Does not sound like she has a formal diagnosis for what is been causing her unsteadiness. At 1 point she did have BPPV but she says those crystals were treated and she has not had symptoms similar to that ever since. She does deal with a little bit of lightheadedness and imbalance problem every day. She also notes that during her previous workup she had an MR angiogram done by a neurologist in the [facility] that showed some degree of carotid stenosis, but she was told that the blockage was not severe enough to require surgery at that time. She was started on aspirin however. She does deal with a little bit of balance problems every day. However beginning about 8 days ago (she believes it was last Sunday when she was with her friend at the hospital. Her friend was a patient getting a injection. She had sudden onset of a worse feeling of unsteadiness. She has a very difficult time describing unsteadiness. She says is not really spinning but she just off balance and she feels, ?spacey? like her head is wrapped in a bubble. She has been able to walk and has not fallen but does often times feel imbalanced when she is walking. She is not having any focal numbness or weakness in her face, arms or legs. No slurred speech. Her friend has not noted any facial droop. She does not have any diplopia. No vomiting or nausea. No abdominal pain. She does not have a headache. No known recent head injuries. She is not having any chest pain or palpitations. She does have COPD so chronically feels a little bit short of breath. She says her breathing has been his baseline this week. No recent new cough, fever, or other respiratory illness. She has not otherwise been sick. No abdominal pain. No vomiting or diarrhea. No black or bloody stools. No swelling in her legs. No chest pain. No new shortness of breath. No palpitations. She has no history of arrhythmia or coronary artery disease. She has been told that she has a soft murmur in the past. It does not sound like she has any significant valvular disease. She has an appointment to see her PCP on Sunday but just feels like the unsteadiness/dizzy/spacey feeling has been persistent for a week and is slowly getting worse over time. She does not think she can wait until her checkup on Sunday. She is worried that she may have had a stroke or TIA. She is concerned that her carotid stenosis may have become more severe Related Data Home Medications ?Medication ?Instructions ?Recorded ?Confirmed budesonide-formoterol HFA 80 2 inhalation BID 05/18/22 01/02/25 mcg-4.5 mcg/actuation aerosol inhaler indomethacin 50 mg capsule 50 mg PO 05/18/22 01/02/25 multivitamin with iron 1 tab PO QDAY 05/18/22 01/02/25 cephalexin 500 mg capsule 500 mg PO BID 09/04/23 01/02/25 citalopram 10 mg tablet 10 mg PO DAILY 09/04/23 01/02/25 citalopram 20 mg tablet 20 mg PO DAILY 09/04/23 01/02/25 fluticasone 500 mcg-salmeterol 50 1 ea inhalation BID 09/04/23 01/02/25 mcg/dose blistr powdr for inhalation (Advair Diskus) levothyroxine 125 mcg tablet 125 mcg PO DAILY 09/04/23 01/02/25 Allergies Allergy/AdvReac Type Severity Reaction Status Date / Time esomeprazole Allergy Mild didn't Verified 07/04/25 13:53 work Sulfa (Sulfonamide Allergy Mild made her Verified 07/04/25 13:53 Antibiotics) feel strange [facility] Medical History Sinusitis ?J32.9 - Chronic sinusitis, unspecified (ICD-10) Dizziness ?R42 - Dizziness and giddiness (ICD-10) Bronchitis ?J40 - Bronchitis, not specified as acute or chronic (ICD-10) Surgical History S/P appendectomy ?Z90.49 - Acquired absence of other specified parts of digestive tract (ICD-10) S/P right knee arthroscopy (07/26/18) ?Z98.890 - Other specified postprocedural states (ICD-10) H/O lumpectomy ?Z98.890 - Other specified postprocedural states (ICD-10) H/O: hysterectomy ?Z90.710 - Acquired absence of both cervix and uterus (ICD-10) Social History Smoking Status: Former smoker How often do you have a drink containing alcohol: monthly or less AUDIT-C Alcohol total score: 1 Non-prescribed substance use: denies use Exam Narrative: Exam Narrative: Constitutional: Appears well-developed and well-nourished. Alert. Conversant. Non toxic. HENT: Head: Atraumatic. No depressed skull fracture, Raccoon Eyes, Rincon's sign, or hemotympanum. Face normal. TMs normal TMs normal bilaterally. Nose: Nose normal. Mouth/Throat: Oral mucosa is clear and moist. no trismus. Pharynx normal. Tonsils symmetric. No tonsillar enlargement, erythema, or exudate. Eyes: Conjunctivae normal. EOM normal. Pupils equal, round, and reactive to light. No scleral icterus. Neck: Normal range of motion. Neck supple. No tracheal deviation present. Cardiovascular: Normal rate, regular rhythm. No gallop. No friction rub. No murmur heard. Symmetric radial artery pulses Pulmonary/Chest: Effort normal. No stridor. No respiratory distress. No wheezes. No rales. No rhonchi . No tenderness. Abdominal: Soft. No distension. No mass. No tenderness. No rebound. No guarding. Musculoskeletal: RUE: Normal range of motion. No tenderness. No deformity LUE: Normal range of motion. No tenderness. No deformity RLE: Normal range of motion. No edema. No tenderness. No deformity LLE: Normal range of motion. No edema. No tenderness. No deformity Lymph: No cervical adenopathy. Neurological: Mental status normal. Attention normal. Alert and oriented x3. GCS 15. Memory normal. Speech fluent. Cognition normal. Cranial Nerves intact II-XII except I did not formally test gag or visual acuity. EOMI. Palate elevates symmetrically and tongue protrudes in the midline. Strength: 5/5 trapezius on the right and left 5/5 deltoid on the right and left 5/5 biceps on the right and left 5/5 triceps on the right and left 5/5 derrick car operator on the right and left 5/5 thumb opposition on the right and left 5/5 finger abduction on the right and left 5/5 hip flexors (L3) on the right and left 5/5 quadriceps (L4) on the right and left 5/5 tibialis anterior on the right and left 5/5 EHL (L5) on the right and left 5/5 gastrocnemius (S1) on the right and left 5/5 hamstring on the right and left Sensation intact to light touch in both upper extremities (C4-T1) Sensation intact to light touch in Both lower extremities (L4-S1). Finger to nose and coordination normal. Gait normal. She is able to stay balance during Romberg testing. she does have trouble balancing on either foot and requires assistance to stay standing when she is trying a 1 ft balance. Skin: Skin is warm and dry. No rash noted. No pallor. Normal capillary refill. Psychiatric: Normal mood. Normal affect. Polite. Const: Vital Signs, click to edit/add: Vital Signs - 24 hr 07/04/25 12:03 Temperature 98.3 F Pulse Rate [Pulse Oximeter] 82 Respiratory Rate 24 Blood Pressure [Ri ght Upper Arm] 153/73 H Pulse Oximetry 96 Oxygen Delivery Me thod Room Air Course Course ED Course: Recheck-patient says she feels about the same after meclizine and fluids. She still able to walk but feels unsteady when standing on 1 ft. We are able to get MRI today so this is ordered Reevaluation(s) Reevaluation #1: Recheck-MRI back. It is normal. Patient is feeling better and is already dressed and put on her shirt and sweater. She is very eager to discharge. She is enthusiastic to get home. Vital Signs Vital signs: Initial Vital Signs Temperature 98.3 F 07/04/25 12:03 Temperature Source Temporal Artery Scan 07/04/25 12:03 Pulse Rate 82 07/04/25 12:03 Respiratory Rate 24 07/04/25 12:03 Blood Pressure 153/73 H 07/04/25 12:03 Blood Pressure Mean 99 07/04/25 12:03 Pulse Oximetry 96 07/04/25 12:03 Oxygen Delivery Method Room Air 07/04/25 12:03 Vital Signs Temperature 98.3 F 07/04/25 12:03 Pulse Rate 82 07/04/25 12:03 Respiratory Rate 24 07/04/25 12:03 Blood Pressure 153/73 H 07/04/25 12:03 Pulse Oximetry 96 07/04/25 12:03 Oxygen Delivery Method Room Air 07/04/25 12:03 Temperature 98.3 F 07/04/25 12:03 Pulse Rate 82 07/04/25 12:03 Respiratory Rate 24 07/04/25 12:03 Blood Pressure 153/73 H 07/04/25 12:03 Pulse Oximetry 96 07/04/25 12:03 Oxygen Delivery Method Room Air 07/04/25 12:03 Medications Administered Medications: Discontinued Medications Generic Name Dose Route Start Last Admin Trade Name Freq PRN Reason Stop Dose Admin Sodium Chloride 1,000 mls @ 1,000 mls/hr 07/04/25 12:45 07/04/25 13:10 0.9 % Sodium Chloride 1000 Ml IV 07/04/25 13:44 1,000 mls/hr .Q1H KLAUS Administration Meclizine HCl 25 mg 07/04/25 12:43 07/04/25 13:10 Meclizine Hcl 25 Mg Tablet PO 07/04/25 12:44 25 mg ONCE ONE Administration Medical Decision Making MDM Narrative Medical decision making narrative: 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 She has a very difficult time describing her dizziness. It is not exactly spinning vertigo but is not clearly presyncopal lightheadedness either. She does have a long history of balance problems and a reports having had previous extensive workup without a clear diagnosis. She feels, however that current dizziness since last week, is different. Although the differential is broad, the patient's primary concern is that she had been told in the past that she had some carotid stenosis affecting her left carotid. She is concerned that she may have had increased vascular stenosis or a potential stroke. On my clinical exam I do not see any nystagmus, focal neurologic deficits. She is somewhat off balance though, most notable when she is trying to stand on 1 foot. Given that symptoms been ongoing for 8 days, she is not in the window for any IV or intra-arterial intervention for stroke. We did obtain a noncontrast head CT and CT angiograms of her head and neck. Differential would also include non UTILITY TELLER causes of unsteadiness. Hemoglobin is normal at 13. No signs of anemia. She is not having any fever or other symptoms of infection. White count is normal. Venous lactic acid is normal. Urinalysis normal. Consider possible atypical presentation of ACS. Screening EKG shows sinus rhythm and no ischemia. Troponin is undetectable and she is not having any chest pain. Kidney function is normal. Electrolytes including sodium potassium, chloride are normal. At this point cause of her unsteadiness is not clear. So far workup is reassuring. At this point no indication for immediate hospitalization. Discussed this with the patient. She is in agreement and adamantly wants to get home soon. Would recommend close outpatient follow-up with PCP. However cautioned to return to the ER if any changing or worsening symptoms. She verbalizes her understanding. Her friend agrees. Lab Data Labs: Lab Results 07/04/25 07/04/25 Range/Units 12:50 12:57 WBC 6.45 (4.50-11.00) K/uL RBC 4.00 (4.00-5.20) m/uL Hgb 13.0 (12.0-16.0) gm/dL Hct 39.4 (33.0-51.0) % MCV 99 (80-100) fL MCH 33 (26-34) pg MCHC 33 (32-36) gm/dL RDW Coeff of Miranda 12.8 (11.5-15.5) % Plt Count 244 (140-440) K/uL Neut % (Auto) 54.7 (42.0-72.0) % Lymph % (Auto) 29.5 (20-44) % Traill % (Auto) 12.6 H (0.0-11.0) % Eos % (Auto) 2.0 (0.0-7.0) % Baso % (Auto) 0.3 (0.0-3.0) % Neut # (Auto) 3.53 (1.7-7.0) K/uL Lymph # (Auto) 1.90 (0.90-2.90) K/uL Traill # (Auto) 0.80 (0.00-0.90) K/UL Eos # (Auto) 0.13 (0.00-0.50) K/uL Baso # (Auto) 0.02 (0.00-0.30) K/uL Abs Immat Gran (auto) 0.06 (0.00-0.30) K/uL Imm/Tot Granulo (auto) 0.9 % Sodium 138 (135-149) mmol/L Potassium 4.6 (3.6-5.1) mmol/L Chloride 103 (96-114) mmol/L Carbon Dioxide 29 (20-32) mmol/L Anion Gap 6 L (7-15) mEq/L BUN 18 (7-30) mg/dL Creatinine 0.9 (0.5-1.5) mg/dL Estimated Creat Clear 39.90 Estimated GFR 63 ml/min Glucose 98 (60-115) mg/dL Lactate 0.8 (0.5-1.9) mmol/L Calcium 9.0 (8.4-10.6) mg/dL Troponin I < 0.01 (0.01-0.04) ng/mL TSH 1.820 (0.270-4.200) uIU/mL Urine Color Yellow (Yellow) Urine Appearance Slightly Cloudy A (Clear) Urine pH 6.5 (5.0-8.5) Ur Specific Baudette 1.025 (1.000-1.030) Urine Protein Negative (Negative) Urine Glucose (UA) Negative (Negative) Urine Ketones Negative (Negative) Urine Blood Trace-intact A (Negative) Urine Nitrite Negative (Negative) Urine Bilirubin Negative (Negative) Urine Urobilinogen 0.2 (0.2-1.0) Ur Leukocyte Esterase Negative (Negative) Urine RBC 0-2 (0-2) Urine WBC 0-2 (0-5) Ur Squamous Epith Cells Few (None-Few) Urine Bacteria None (None) Ethyl Alcohol < 0.01 (0.01-0.03) % Imaging Data CTA head and neck: Attestation: I have reviewed the pertinent imaging results. Radiologist's impression: CTA Head: 1. No intracranial large vessel occlusion or critical stenosis. CTA NECK: 1. Mild-moderate narrowing, origin of the non-dominant left vertebral artery. CT scan - head: Attestation: I have reviewed the pertinent imaging results. Radiologist's impression: IMPRESSION: 1. No CT evidence of acute intracranial abnormality. 2. Mild generalized cerebral volume loss and moderate chronic microangiopathy changes. MR brain: Attestation: I have reviewed the pertinent imaging results. Radiologist's impression: Impression: 1. No acute/subacute infarct. 2. Slightly progressed moderate chronic ischemic microvascular disease ECG Data Attestation: I personally reviewed and interpreted this ECG as follows: Interpretation: Normal sinus rhythm Rate 61 MN interval 156 Normal QRS axis. Left bundle-branch block pattern No ST segment elevation or depression allowing for left bundle-branch block. QTC 462, QTC 465 Discharge Plan Discharge Clinical Impression: Dizziness Patient Disposition: Home, Self-Care Condition: Stable Instructions: Dizziness (ED) Additional Instructions: As we discussed, so far your workup looks reassuring. However we do not have a definitive cause for your new dizziness. Please monitor your symptoms carefully. Return to the ER right away if you have any concerning or worsening symptoms. Otherwise please follow-up with your regular doctor for recheck on Sunday. Prescriptions: No Action budesonide-formoterol 80-4.5 mcg/actuation HFA aerosol inhaler 2 inhalation BID indomethacin 50 mg capsule 50 mg PO multivitamin with iron Tablet 1 tab PO QDAY levothyroxine 125 mcg tablet 125 mcg PO DAILY citalopram 20 mg tablet 20 mg PO DAILY citalopram 10 mg tablet 10 mg PO DAILY cephalexin 500 mg capsule 500 mg PO BID fluticasone propion-salmeterol [Advair Diskus] 500-50 mcg/dose blister with device 1 ea inhalation BID Follow Up/Referrals: Neema Siddiqui PA-C [Primary Care Provider, Family Practice] Stand Alone Forms: [employer] Info Instructions
--- NOTE | 2025-07-04 12:43 | CRLHL7_ITS ---
For Patients: As a result of the Century Cures Act, medical imaging exams and procedure reports are released immediately into your electronic medical record. You may view this report before your referring provider. If you have questions, please contact your health care provider. INDICATION: Unsteady and off balance, history of carotid stenosis 09/19, right-sided breast cancer. TECHNIQUE: Noncontrast axial CT of the head. Coronal and sagittal reformats. Bone and soft tissue algorithms. COMPARISON: MRA head/neck 09/22/2022, MRI brain 08/08/2022 FINDINGS: Prominence of the ventricles and cortical sulci compatible with generalized cerebral volume loss. No midline shift or mass effect. No acute intracranial hemorrhage or extra-axial fluid collection. Faith-white matter differentiation is grossly maintained. Patchy hypoattenuation throughout the cerebral white matter, typical of chronic microangiopathy. Calcific intracranial atherosclerotic plaquing. Midline structures are unremarkable. The calvarium appears grossly intact. Visualized paranasal sinuses and mastoid air cells are clear. Bilateral lens implants. IMPRESSION: 1. No CT evidence of acute intracranial abnormality. 2. Mild generalized cerebral volume loss and moderate chronic microangiopathy changes. Please note that all CT scans at this facility use dose modulation, iterative reconstruction, and/or weight-based dosing when appropriate to reduce radiation dose to as low as reasonably achievable. Dictated by Dora Pardo MD @ 07/04/2025 2:26:40 PM (Electronically Signed)
--- NOTE | 2025-07-04 12:44 | CT_ITS ---
Patient: SOLEDAD MORENO Facility:?[facility] Patient ID:?[id number] Site Patient ID:?[id number]. Site :?[id number] Study:?CT-Head Angio NON ACUTE; WITH 95 CC ISOVUE 370-07/04/2025 2:12:45 PM Ordering Physician:Cierra Larose Final Report: INDICATION: Acute stroke, unsteadiness. TECHNIQUE: CTA head using intravenous contrast with bolus tracking, 3D angiographic rendering using maximum intensity projection (MIP) and images permanently archived. CTA neck using intravenous contrast with bolus tracking, 3D angiographic rendering using maximum intensity projection (MIP) and images permanently archived. FINDINGS: CTA head: There is scattered intracranial atherosclerotic disease. There is normal opacification of the intracranial vasculature. There is no large vessel occlusion or significant intracranial stenosis. No aneurysm is identified. CTA neck: There is carotid atherosclerosis bilaterally. There is no significant carotid artery stenosis or dissection. There is a moderate stenosis at the origin of the non dominant left vertebral artery as well as the left subclavian artery origin. There is no significant right vertebral artery stenosis or dissection. Advanced degenerative changes are noted in the cervical spine. Emphysema is present in the visualized lungs. IMPRESSION: No acute intracranial abnormality at CTA. Carotid atherosclerosis without significant stenosis. 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 Please note that all CT scans at this facility use dose modulation, iterative reconstruction, and/or weight-based dosing when appropriate to reduce radiation dose to as low as reasonably achievable. Dictated by Marcos Resendiz MD @ 07/04/2025 3:33:54 PM Signed by:?Marcos Resendiz MD @07/04/2025 3:33:54 PM (Electronic Signature)
[2025-07-04 13:01] LABS: Hematocrit* 39.4 % (33.0-51.0); Hemoglobin* 13.0 gm/dL (12.0-16.0); Immature Granulocytes Abs Auto 0.06 K/uL (0.00-0.30); Immature Granulocytes Pct Auto 0.9 %; Lactate* 0.8 mmol/L (0.5-1.9); Lymphocytes Absolute Auto 1.90 K/uL (0.90-2.90); Mean Corpuscular HGB Conc 33 gm/dL (32-36); Mean Corpuscular Hemoglobin 33 pg (26-34); Mean Corpuscular Volume 99 fL (80-100); RDW Coefficient of Variation % 12.8 % (11.5-15.5); Red Blood Count* 4.00 m/uL (4.00-5.20); White Blood Count* 6.45 K/uL (4.50-11.00)
[2025-07-04 13:02] LABS: Slide Review Reflex No
[2025-07-04 13:06] LABS: Appearance Urine Slightly Cloudy (Clear)
[2025-07-04] MEDS: MECLIZINE HCL 25 MG TABLET PO (13:10)
[2025-07-04 13:18] LABS: Chloride* 103 mmol/L (96-114); Sodium* 138 mmol/L (135-149)
[2025-07-04 13:19] LABS: Potassium* 4.6 mmol/L (3.6-5.1)
[2025-07-04 13:21] LABS: Anion Gap 6 mEq/L (7-15); Blood Urea Nitrogen* 18 mg/dL (7-30); Carbon Dioxide* 29 mmol/L (20-32); Creatinine* 0.9 mg/dL (0.5-1.5); Est. Creatinine Clearance* 39.90; Estimated Glomerular Filt Rate 63 ml/min
[2025-07-04 13:22] LABS: Calcium* 9.0 mg/dL (8.4-10.6); Glucose* 98 mg/dL (60-115)
[2025-07-04 13:44] LABS: Ethanol* < 0.01 % (0.01-0.03)
[2025-07-04 14:05] LABS: TSH With Reflex to FT4* 1.820 uIU/mL (0.270-4.200)
--- NOTE | 2025-07-04 15:07 | MR_ITS ---
Patient: SOLEDAD MORENO Facility:?[facility] Patient ID:?[id number] Site Patient ID:?[id number]. Site :?[id number] Study:?MRI-Head w/o-07/04/2025 3:48:41 PM Ordering Physician:Cierra Larose Final Report: Indication: Ataxia. Technique: Multiplanar, multisequence MRI of the brain was performed without intravenous contrast. Comparison: MR brain 07/04/2025. MRI brain 08/08/2022. Findings: Slight thinning of the corpus callosum. The pituitary gland and clivus appear intact. Mild degenerative change visualized upper cervical spine. There is no restricted diffusion. No intracranial hemorrhage. The ventricles are proportionate to the cerebral sulci. The 4th ventricle appears midline. The basal cisterns appear patent. No abnormal extra-axial fluid collection identified. Mild parenchymal volume loss. Slightly progressed moderate scattered T2 FLAIR hyperintense foci within the subcortical and periventricular white matter, favored to represent chronic ischemic microvascular disease. There is no intracranial mass, abnormal mass-effect or midline shift identified. Major intracranial vascular flow voids appear grossly intact. Thinning of the ocular lenses. Impression: 1. No acute/subacute infarct. 2. Slightly progressed moderate chronic ischemic microvascular disease. Dictated by Pablo Kennedy MD @ 07/04/2025 4:37:31 PM (Electronic Signature)
== END 2025-07-04 18:31 | disposition home or self-care (01) ==
PROVIDERS: Emergency Provider Emergency Medicine; PCP Physician Assistant Medical
DX: R42 Dizziness and giddiness (principal); R26.81 Unsteadiness on feet; E03.9 Hypothyroidism, unspecified
CPT/HCPCS: 36415; 70450; 70496; 70498; 70551; 80048; 81001; 82077; 83605; 84443; 84484; 85025; 93005; 96360; 96361; 99284; 99285; A9270; J7030; Q9967

== ENCOUNTER 2025-08-12 16:15 | Outpatient (RCR) | payer MEDICARE, BC, SELFPAY | END 2025-10-08 15:50 | disposition home or self-care (01) | PROVIDERS: PCP Physician Assistant Medical; Visit Provider Student in an Organized Health Care Education/Training Program | DX: R42 Dizziness and giddiness (principal); Z51.89 Encounter for other specified aftercare | CPT/HCPCS: 95992; 97110; 97112; 97140; 97162; 97535 ==

== ENCOUNTER 2025-09-08 08:19 | Outpatient (CLI) | payer MEDICARE, BC, SELFPAY ==
[2025-09-08] MEDS: REGADENOSON 0.4 MG/5 ML SYRINGE IVP (10:11)
[2025-09-08] MEDS: SODIUM CHLORIDE 0.9 % (FLUSH) 10 ML SYRINGE IVF (10:11)
[2025-09-08 10:22] VITALS: BP 146/66; PULSE 81; RESP 16
--- NOTE | 2025-09-08 14:11 | W.PM.STED ---
Stress Test Note Date Date Seen: 09/08/25 Date of test: 09/08/25 Providers Primary care provider: Bety Fields Stress test physician: Km Mosley Stress Test Note Stress test ordered: Lexiscan Indication for test: Shortness of breath Stress test medicine: Lexiscan Results discussion: This pleasant lady presents for the above test after discussion the risks benefits and side effects she would like to proceed, cardiac stress test medical history form is reviewed. Pretest EKG is done, which shows a wide QRS, left bundle-branch block configuration, with occasional PVCs. Sinus rhythm is noted, with a ventricular rate of 65, blood pressure 137/67. Standard infusion of Lexiscan is done over the 5 minute. She tolerated this well, she had no complaints, no shortness of breath no chest pain. No evidence of any ST wave changes over her already abnormal tracing. Her maximum heart rate was 122 and her maximum blood pressure 150/63. Impression: Negative electrographic portion, negative subjective portion of Lexiscan Follow up suggested: Await nuclear images which will be read, by Cardiology and nuclear Medicine. Clinical correlation with these will be needed, patient tolerated the infusion well, and left this testing facility at her baseline.
== END 2025-09-08 11:01 | disposition home or self-care (01) ==
LOC: STRESS 08:21
PROVIDERS: PCP Family Medicine; Visit Provider Internal Medicine Cardiovascular Disease
DX: R06.09 Other forms of dyspnea (principal); E78.00 Pure hypercholesterolemia, unspecified
CPT/HCPCS: 78452; 93016; 93017; A9500; J2785